=== PATIENT | female | born 1980 | race Caucasian/White ===

== ENCOUNTER 2019-07-09 10:02 | Observation (INO) ==
[2019-07-09] MEDS ORDERED: ENOXAPARIN 100 MG/ML SYRINGE SUBCUT STA (10:32)
[2019-07-09] MEDS ORDERED: ASPIRIN 325 MG TABLET PO STA (10:32)
[2019-07-09] MEDS ORDERED: NITROGLYCERIN 2% OINT 1 INCH/GM PACK TOP STA (10:32)
[2019-07-09] MEDS ORDERED: ONDANSETRON 4 MG/2 ML VIAL IV STA (10:32)
[2019-07-09] MEDS ORDERED: fentaNYL 100 MCG/2 ML VIAL IV STA (10:33)
[2019-07-09 10:47] LABS: Basophils % 0.4 % (0.0-0.8); Eosinophils # 0.2 10*3/uL (0.0-0.87); Eosinophils % 2.3 % (0.00-10.9); Hematocrit 40.9 VOL% (35.7-47.0); Hemoglobin 13.7 GM/DL (12.0-16.0); Immature Granulocytes % 0.1 %; Immature Granulocytes Absolute 0.01 #; Lymphocytes # 2.5 10*3/uL (1.4-4.0); Lymphocytes % 33.3 % (21.3-54.2); Mean Corpuscular HGB Conc 33.5 GM/DL (32-36); Mean Corpuscular Volume 92.5 FL (87-102); Mean Platelet Volume 9.8 FL (9.6-12.0); Monocytes % 7.2 % (1.7-12.7); Neutrophils % 56.7 % (38.7-73.9); Platelet Count 206 T/CUMM (130-400); Red Blood Count 4.42 MC/CUMM (3.8-5.5); Red Cell Distribution Width 13.1 % (9.3-17.3); White Blood Count 7.4 T/CUMM (4-12)
[2019-07-09 10:54] LABS: INR 0.9; PT Patient Result 10.2 SECS (9.6-12.2)
[2019-07-09 11:08] LABS: Apearance,Urine CLEAR (Clear); Bilirubin,Urine Negative (Negative); Blood, Urine Negative (Negative); Glucose,Urine (UA) Negative (Negative); Ketones,Urine Negative (Negative); Nitrite,Urine Negative (Negative); Protein,Urine Negative; RBC,Urine 5 /HPF (0-4); Squamous Epithelial Cell,Urine Occasional /HPF (0-10); Urine Color Yellow (Yellow); Urine Specific Gravity 1.009 (1.001-1.035); Urine Urobilinogen < 2.0 EU/DL (0.2-1.0); WBC,Urine 9 /HPF (0-6)
[2019-07-09 12:10] LABS: Alanine Aminotransferase 27 U/L (13-56); Albumin 3.6 G/DL (3.4-5.0); Alkaline Phosphatase 52 U/L (45-117); Aspartate Amino Transferase 18 U/L (0-37); Bilirubin,Total < 0.39 MG/DL (0.2-1.0); Blood Urea Nitrogen 11 MG/DL (7-18); Calcium 9.2 MG/DL (8.5-10.1); Estimated Glom Filtration Rate 92 ML/MIN; Glucose 123 MG/DL (74-106); Osmolality,Calculated 280.3 MOS/KG (273-304); Total Protein 7.2 G/DL (6.4-8.3)
[2019-07-09 13:19] LABS: Barbiturates Screen,Urine Negative (Negative); Benzodiazepines Screen,Urine Negative (Negative); Cannabinoid Screen,Urine Negative (Negative); Opiate Screen,Urine Negative (Negative); Phencyclidine Screen,Urine Negative (Negative)
[2019-07-09] MEDS ORDERED: NICOTINE 21 MG/24 HR PATCH TRANSDERM PRN (13:21)
[2019-07-09] MEDS ORDERED: ACETAMINOPHEN 325 MG TABLET PO PRN (13:21)
[2019-07-09] MEDS ORDERED: ONDANSETRON 4 MG/2 ML VIAL IV PRN (13:21)
[2019-07-09] MEDS ORDERED: ENOXAPARIN 40 MG/0.4 ML SYRINGE SUBCUT SCH (13:30)
[2019-07-09] MEDS: SODIUM CHLORIDE 0.45% 1,000 ML IV SCH (14:59)
[2019-07-09] MEDS ORDERED: DEXTROSE 10% 250 ML BAG IV PRN (17:01)
[2019-07-09] MEDS ORDERED: GLUCAGON 1 MG VIAL IM PRN (17:01)
[2019-07-09] MEDS: KETOROLAC 30 MG/1 ML VIAL IV SCH ×2 (17:32→22:31)
[2019-07-09] MEDS ORDERED: ATORVASTATIN 20 MG TABLET PO SCH (21:00)
[2019-07-10] MEDS: SODIUM CHLORIDE 0.45% 1,000 ML IV SCH (01:29)
[2019-07-10] MEDS: KETOROLAC 30 MG/1 ML VIAL IV SCH (04:43)
[2019-07-10 05:01] LABS: Basophils % 0.3 % (0.0-0.8); Eosinophils # 0.2 10*3/uL (0.0-0.87); Hemoglobin 12.4 GM/DL (12.0-16.0); Immature Granulocytes % 0.2 %; Immature Granulocytes Absolute 0.01 #; Lymphocytes % 50.4 % (21.3-54.2); Mean Corpuscular HGB Conc 33.5 GM/DL (32-36); Mean Corpuscular Volume 94.6 FL (87-102); Monocytes % 6.9 % (1.7-12.7); Neutrophils % 39.2 % (38.7-73.9); Platelet Count 178 T/CUMM (130-400); Red Blood Count 3.91 MC/CUMM (3.8-5.5)
[2019-07-10 05:52] LABS: Alanine Aminotransferase 29 U/L (13-56); Albumin 2.9 G/DL (3.4-5.0); Alkaline Phosphatase 57 U/L (45-117); Aspartate Amino Transferase 9 U/L (0-37); Bilirubin,Total < 0.39 MG/DL (0.2-1.0); Blood Urea Nitrogen 15 MG/DL (7-18); Calcium 8.6 MG/DL (8.5-10.1); Estimated Glom Filtration Rate 93 ML/MIN; Glucose 163 MG/DL (74-106); Osmolality,Calculated 285.3 MOS/KG (273-304); Total Protein 6.1 G/DL (6.4-8.3)
[2019-07-10 08:03] VITALS: BP 110/63
[2019-07-10] MEDS ORDERED: PANTOPRAZOLE 40 MG TABLET PO SCH (09:00)
== END 2019-07-10 09:29 | disposition home health service (06) ==
LOC: N.ED 10:02 → N.EDINP 10:02 → SUATTDRO 13:21 → N.2W 13:53
PROVIDERS: ADMIT Internal Medicine; ATTEND Internal Medicine